=== PATIENT | male | born 1945 | race Caucasian/White ===

== ENCOUNTER 2021-08-25 21:47 | Inpatient (IN) ==
[2021-08-25] MEDS ORDERED: Diltiazem IV BAG D5W Premix 125 MG/125 ML BAG IV SCH (22:00)
[2021-08-25] MEDS: Norepinephrine 16MCG/ML BAG NS 4,000 MCG/250 ML BAG IV SCH (22:20)
[2021-08-25] MEDS ORDERED: Piperacillin/Tazobac ADVAN 3.375 GM in NS 0.9% 100 ml BAG 100 ML IV ONE (23:34)
[2021-08-25] MEDS ORDERED: Zosyn per Pharmacy NOTE FOLLOW UP SCH (23:45)
[2021-08-26] MEDS ORDERED: Albuterol HFA INHALER 8 gm MDI INH PRN (01:03)
[2021-08-26 01:20] LABS: ABS Lymphocytes 0.8 10^3/ul (1.0-4.8); ABS Monocytes 0.9 10^3/ul (0-0.8); ABS Neutrophils 12.8 10^3/ul (1.5-7.7); Eosinophil % 0.1 %; Hematocrit 32 % (42-52); Hemoglobin 10.4 g/dL (14.0-18.0); Lymphocyte % 5.6 %; Mean Corpuscular HGB Conc 32 g/dL (31-36); Mean Corpuscular Hemoglobin 30 pg (27-31); Mean Corpuscular Volume 92 fL (80-94); Mean Platelet Volume 8.4 fL (7.4-10.4); Platelet Count 119 10^3/uL (150-450); Red Blood Count 3.53 10^6 /uL (4.18-5.48); Red Cell Distribution Width 21 % (10-15); White Blood Count 14.5 10^3/uL (3.5-10.8)
[2021-08-26 01:32] LABS: Calcium 7.7 mg/dL (8.6-10.3); Magnesium 1.7 mg/dL (1.9-2.7); Potassium 3.8 mmol/L (3.5-5.0); Total Bilirubin 1.4 mg/dL (0.2-1.0)
[2021-08-26 01:38] LABS: Albumin/Globulin Ratio 0.7 (1-3); Globulin 2.8 g/dL (2-4); Total Protein 4.8 g/dL (6.4-8.9)
[2021-08-26] MEDS ORDERED: Magnesium Sulfate 2 gm BAG 2 GM/50 ML BAG IVPB ONE (01:57)
[2021-08-26] MEDS ORDERED: NORMOSOL-R pH 7.4 1000 mL BAG 1,000 ML IV SCH (02:00)
[2021-08-26] MEDS: Norepinephrine 16MCG/ML BAG NS 4,000 MCG/250 ML BAG IV SCH (04:02)
[2021-08-26 04:37] LABS: ABS Lymphocytes 0.7 10^3/ul (1.0-4.8); ABS Monocytes 0.6 10^3/ul (0-0.8); ABS Neutrophils 11.3 10^3/ul (1.5-7.7); Eosinophil % 0.1 %; Hematocrit 30 % (42-52); Hemoglobin 9.8 g/dL (14.0-18.0); Lymphocyte % 5.8 %; Mean Corpuscular HGB Conc 33 g/dL (31-36); Mean Corpuscular Hemoglobin 30 pg (27-31); Mean Corpuscular Volume 90 fL (80-94); Mean Platelet Volume 8.3 fL (7.4-10.4); Platelet Count 102 10^3/uL (150-450); Red Blood Count 3.31 10^6 /uL (4.18-5.48); Red Cell Distribution Width 20 % (10-15); White Blood Count 12.7 10^3/uL (3.5-10.8)
[2021-08-26] MEDS: ZOSYN 3.375 GM Q8H per EXTENDED INFUSION IV SCH ×3 (04:51→21:48)
[2021-08-26 04:54] LABS: Calcium 7.5 mg/dL (8.6-10.3); Potassium 3.5 mmol/L (3.5-5.0); eGFR CKD-EPI 91.7 (>60)
[2021-08-26] MEDS: Diltiazem IV BAG D5W Premix 125 MG/125 ML BAG IV SCH ×2 (08:18→11:54)
[2021-08-26] MEDS: Hydrocortisone INJ 100 MG/2ML 2 ML VIAL IV SCH ×2 (08:19→16:37)
[2021-08-26] MEDS: PHENYLEPHRINE DRIP IVPREMIX 50 MG/250 ML BAG IV SCH ×2 (08:20→19:03)
[2021-08-26] MEDS: Mometasone/Formoter 200/5 MDI INH SCH ×2 (08:59→19:54)
[2021-08-26] MEDS: SPIRIVA Respimat (tiotropium) 2.5 mcg/inh Inhaler INH SCH (09:00)
[2021-08-26 10:52] LABS: Digoxin 0.6 ng/ml (0.8-2.0)
[2021-08-26] MEDS ORDERED: Digoxin IV 0.5 MG/2 ML AMP (0.25 MG/ML) IV SLOW PU ONE (12:47)
[2021-08-26] MEDS ORDERED: Magnesium Sulfate IV 1GM/100ML 1 GM/100 ML BAG IV ONE (12:49)
[2021-08-26] MEDS ORDERED: KCL 20 MEQ/100 ML IVPREMIX 20 MEQ/100 ML BAG IV SCH (13:00)
[2021-08-26] MEDS ORDERED: Potassium Chloride LIQUID 20 MEQ/15 ML LIQUID PO ONE (13:14)
[2021-08-27] MEDS: Hydrocortisone INJ 100 MG/2ML 2 ML VIAL IV SCH ×2 (00:41→09:03)
[2021-08-27] MEDS: Lactated Ringers 1000 ml BAG 1,000 ML IV SCH ×2 (01:07→09:18)
[2021-08-27] MEDS: PHENYLEPHRINE DRIP IVPREMIX 50 MG/250 ML BAG IV SCH ×2 (03:48→11:55)
[2021-08-27 05:20] LABS: Hematocrit 33 % (42-52); Hemoglobin 10.7 g/dL (14.0-18.0); Mean Corpuscular HGB Conc 32 g/dL (31-36); Mean Corpuscular Hemoglobin 29 pg (27-31); Mean Corpuscular Volume 91 fL (80-94); Mean Platelet Volume 8.5 fL (7.4-10.4); Platelet Count 124 10^3/uL (150-450); Red Blood Count 3.63 10^6 /uL (4.18-5.48); Red Cell Distribution Width 21 % (10-15); White Blood Count 16.2 10^3/uL (3.5-10.8)
[2021-08-27 05:33] LABS: Calcium 7.9 mg/dL (8.6-10.3); Magnesium 2.1 mg/dL (1.9-2.7); Potassium 4.4 mmol/L (3.5-5.0)
[2021-08-27 05:39] LABS: eGFR CKD-EPI 90.4 (>60)
[2021-08-27] MEDS: ZOSYN 3.375 GM Q8H per EXTENDED INFUSION IV SCH ×3 (06:00→21:35)
[2021-08-27] MEDS: SPIRIVA Respimat (tiotropium) 2.5 mcg/inh Inhaler INH SCH (07:35)
[2021-08-27] MEDS: Mometasone/Formoter 200/5 MDI INH SCH ×2 (07:35→19:16)
[2021-08-27] MEDS ORDERED: Lactulose 30 ml UDC PO PRN ×2 (08:20→10:42)
[2021-08-27 09:24] LABS: Urine Appearance Cloudy; Urine Bilirubin Negative (Negative); Urine Blood 3+ (Negative); Urine Color Amber; Urine Glucose Negative (Negative); Urine Ketones Negative (Negative); Urine Nitrite Negative (Negative); Urine Protein 1+(30 mg/dL) (Negative); Urine Specific Gravity 1.033 (1.002-1.030); Urine Urobilinogen Negative (Negative)
[2021-08-27 09:42] LABS: Urine Bacteria Absent (Absent); Urine Red Blood Cell 3+(>10/hpf) (Absent); Urine White Blood Cell 3+(>20/hpf) (Absent); Urine Yeast Present (Absent)
[2021-08-27 12:06] LABS: INR 5.43 (0.86-1.15)
[2021-08-27] MEDS: methylPREDNISolone SOD 40 mg/ml 1 ml VIAL IV SCH (15:12)
[2021-08-27] MEDS ORDERED: Phenylephrine IV 10 MG/ML 1 ml VIAL ONE (19:54)
[2021-08-28] MEDS: methylPREDNISolone SOD 40 mg/ml 1 ml VIAL IV SCH (00:39)
[2021-08-28] MEDS: PHENYLEPHRINE DRIP IVPREMIX 50 MG/250 ML BAG IV SCH ×2 (04:01→16:32)
[2021-08-28 04:39] LABS: Hematocrit 30 % (42-52); Hemoglobin 9.8 g/dL (14.0-18.0)
[2021-08-28 04:45] LABS: INR 4.11 (0.86-1.15)
[2021-08-28 04:55] LABS: Albumin/Globulin Ratio 0.7 (1-3); Calcium 8.1 mg/dL (8.6-10.3); Globulin 2.7 g/dL (2-4); Potassium 4.2 mmol/L (3.5-5.0); Total Bilirubin 1.2 mg/dL (0.2-1.0); Total Protein 4.7 g/dL (6.4-8.9); eGFR CKD-EPI 71.9 (>60)
[2021-08-28] MEDS: ZOSYN 3.375 GM Q8H per EXTENDED INFUSION IV SCH ×3 (04:59→21:26)
[2021-08-28] MEDS: SPIRIVA Respimat (tiotropium) 2.5 mcg/inh Inhaler INH SCH (07:21)
[2021-08-28] MEDS: Mometasone/Formoter 200/5 MDI INH SCH ×2 (07:21→19:07)
[2021-08-28] MEDS ORDERED: Albumin Human 5% 12.5 GM/250 ML BTL IV ONE ×2 (11:29→11:33)
[2021-08-28] MEDS ORDERED: Albumin Human 25% 12.5 GM/50 ML BTL IV ONE (15:29)
[2021-08-28] MEDS ORDERED: PHENYLEPHRINE DRIP IVPREMIX 50 MG/250 ML BAG IV SCH (15:31)
[2021-08-29] MEDS ORDERED: Albumin Human 25% 12.5 GM/50 ML BTL IV ONE (00:36)
[2021-08-29] MEDS: ZOSYN 3.375 GM Q8H per EXTENDED INFUSION IV SCH ×3 (05:25→21:02)
[2021-08-29 05:44] LABS: INR 2.45 (0.86-1.15)
[2021-08-29 05:46] LABS: Hematocrit 30 % (42-52); Hemoglobin 9.6 g/dL (14.0-18.0); Mean Corpuscular HGB Conc 32 g/dL (31-36); Mean Corpuscular Hemoglobin 30 pg (27-31); Mean Corpuscular Volume 92 fL (80-94); Red Blood Count 3.25 10^6 /uL (4.18-5.48); White Blood Count 16.6 10^3/uL (3.5-10.8)
[2021-08-29 05:47] LABS: ABS Basophils 0.1 10^3/ul (0-0.2); ABS Lymphocytes 0.9 10^3/ul (1.0-4.8); ABS Monocytes 0.6 10^3/ul (0-0.8); Lymphocyte % 5.4 %
[2021-08-29 05:56] LABS: Albumin 2.3 g/dL (3.2-5.2); Albumin/Globulin Ratio 1.1 (1-3); Calcium 8.2 mg/dL (8.6-10.3); Globulin 2.1 g/dL (2-4); Potassium 4.5 mmol/L (3.5-5.0); Total Bilirubin 1.2 mg/dL (0.2-1.0); Total Protein 4.4 g/dL (6.4-8.9); eGFR CKD-EPI 62.7 (>60)
[2021-08-29 07:01] LABS: Platelet Count 98 10^3/uL (150-450); Red Cell Distribution Width 21 % (10-15)
[2021-08-29] MEDS ORDERED: Furosemide 40 mg/4 ml IV VIAL IV SLOW PU ONE (10:03)
[2021-08-29] MEDS: SPIRIVA Respimat (tiotropium) 2.5 mcg/inh Inhaler INH SCH (10:58)
[2021-08-29] MEDS: Mometasone/Formoter 200/5 MDI INH SCH ×2 (10:58→19:05)
[2021-08-29] MEDS ORDERED: PHENYLEPHRINE DRIP IVPREMIX 50 MG/250 ML BAG IV SCH (11:00)
[2021-08-29] MEDS: Albumin Human 25% 25 GM/100 ML BTL IV SCH ×5 (12:19→15:56)
[2021-08-29] MEDS ORDERED: NS 0.9% 100 ml BAG 100 ML ONE (14:08)
[2021-08-29] MEDS: Octreotide Acetate 50 MCG/ML ML SUBCUT SCH ×2 (14:15→20:44)
[2021-08-30] MEDS ORDERED: Acetaminophen IV 1 GM/100ML 100 ML IV ONE (03:57)
[2021-08-30 04:28] LABS: Hematocrit 29 % (42-52); Hemoglobin 9.4 g/dL (14.0-18.0); Mean Corpuscular HGB Conc 32 g/dL (31-36); Mean Corpuscular Hemoglobin 29 pg (27-31); Mean Corpuscular Volume 91 fL (80-94); Mean Platelet Volume 9.3 fL (7.4-10.4); Platelet Count 89 10^3/uL (150-450); Red Blood Count 3.22 10^6 /uL (4.18-5.48); Red Cell Distribution Width 21 % (10-15); White Blood Count 14.9 10^3/uL (3.5-10.8)
[2021-08-30 04:42] LABS: Albumin 2.8 g/dL (3.2-5.2); Albumin/Globulin Ratio 1.6 (1-3); Calcium 8.3 mg/dL (8.6-10.3); Globulin 1.7 g/dL (2-4); Potassium 4.3 mmol/L (3.5-5.0); Total Bilirubin 1.3 mg/dL (0.2-1.0); Total Protein 4.5 g/dL (6.4-8.9); eGFR CKD-EPI 43.1 (>60)
[2021-08-30] MEDS: ZOSYN 3.375 GM Q8H per EXTENDED INFUSION IV SCH ×2 (05:15→14:17)
[2021-08-30 05:39] LABS: Burr Cells 3+
[2021-08-30 05:40] LABS: Acanthocytes 1+
[2021-08-30 05:41] LABS: ABS Lymphocytes 1.1 10^3/ul (1.0-4.8); ABS Monocytes 0.8 10^3/ul (0-0.8); ABS Neutrophils 12.9 10^3/ul (1.5-7.7); Eosinophil % 0.1 %; Lymphocyte % 7.6 %; Nucleated Red Blood Cells % 0.1
[2021-08-30] MEDS ORDERED: Albumin Human 25% 25 GM/100 ML BTL IV ONE (07:25)
[2021-08-30] MEDS: Octreotide Acetate 50 MCG/ML ML SUBCUT SCH ×2 (07:36→14:18)
[2021-08-30] MEDS: SPIRIVA Respimat (tiotropium) 2.5 mcg/inh Inhaler INH SCH (08:20)
[2021-08-30] MEDS: Mometasone/Formoter 200/5 MDI INH SCH (08:20)
[2021-08-30] MEDS ORDERED: Albumin Human 25% 25 GM/100 ML IV ONE ×3 (08:25→10:00)
[2021-08-30] MEDS ORDERED: Morphine 2 MG/ML SYRINGE IV ONE (08:26)
[2021-08-30 09:20] LABS: INR 1.89 (0.86-1.15)
[2021-08-30 14:04] LABS: Body Fluid WBC 24 /mcL
[2021-08-30 14:23] LABS: Body Fluid Mono 16 %; Body Fluid Other Cells 7; Body Fluid Total Cells Counted 200
[2021-08-30 14:57] LABS: Body Fluid Source Peritonial Fluid
[2021-08-30 14:58] LABS: Body Fluid Appearance Clear; Body Fluid Color Yellow
[2021-08-30] MEDS ORDERED: Morphine 2 MG/ML SYRINGE IV PRN (16:39)
[2021-08-30] MEDS ORDERED: Lorazepam PYXIS KEY PRN (16:45)
[2021-08-30 20:01] VITALS: BP 86/64
[2021-08-31] MEDS: Atropine 1% (ORAL/SL) 15 ML BTL SL PRN (23:18)
[2021-09-01] MEDS: Atropine 1% (ORAL/SL) 15 ML BTL SL PRN (06:07)
[2021-09-01] MEDS: LORazepam 2 mg VIAL 1 ml IV PUSH PRN ×2 (10:11→17:15)
[2021-09-02] MEDS: LORazepam 2 mg VIAL 1 ml IV PUSH PRN (06:18)
[2021-09-02] MEDS: Morphine ORAL CONCENTRATE 5 MG/0.25 ML ORAL.SYRIN PO PRN ×5 (09:59→22:23)
[2021-09-02] MEDS: Atropine 1% (ORAL/SL) 15 ML BTL SL PRN ×4 (10:00→17:44)
[2021-09-02] MEDS ORDERED: LORazepam 2 mg VIAL 1 ml IV PUSH PRN (10:05)
== END 2021-09-03 04:38 | disposition expired | DRG 871 ==
LOC: ED 21:47 → EDHOLD 23:36 → SUATTDRO 23:36 → ICU 08-26 00:39 → MED 08-31 16:01
PROVIDERS: ADMIT Internal Medicine; ATTEND Internal Medicine